=== PATIENT | male | born 1940 ===

== ENCOUNTER 2018-09-06 09:41 | Outpatient (CLI) | payer OTHER ==
[~2018-09-06] VITALS: Ht 162.6 cm; Wt 63.5 kg
== END 2018-09-06 10:00 | disposition home or self-care (01) ==
LOC: OFIC 805 09:41
DX: J37.0 Chronic laryngitis (principal); R06.1 Stridor; R06.02 Shortness of breath

== ENCOUNTER 2018-11-17 07:55 | Outpatient (CLI) | payer OTHER | END 2018-11-17 08:42 | disposition home or self-care (01) | LOC: NUCLEAR 07:55 | DX: C32.0 Malignant neoplasm of glottis (principal) | CPT/HCPCS: 78815; A9552 ==